=== PATIENT | female | born 1960 | race African-American/Black ===

== ENCOUNTER → 2016-09-19 | Outpatient (CLI) | payer BC | LOC: WI 08:12 | PROVIDERS: ATTEND Internal Medicine | DX: Z12.31 Encounter for screening mammogram for malignant neoplasm of breast (principal) | CPT/HCPCS: 77067; G0202 ==

== ENCOUNTER → 2018-08-24 | Outpatient (CLI) | payer BC ==
--- NOTE | 2018-08-24 10:36 | WOMENS IMAGING REPORT ---
EXAM DESCRIPTION: BILAT SCREENING MAMMO W/CAD COMPLETED DATE/TIME: 08/24/2018 8:19 am REASON FOR STUDY: Z12.31 ROUTINE BILATERAL SCREENING Z12.31 ENCNTR SCREEN MAMMOGRAM FOR MALIGNANT N EOPLASM OF MAYANK COMPARISON: Multiple since 2008 TECHNIQUE: Standard craniocaudal and mediolateral oblique views of each breast recorded using [employer] acquisition. LIMITATIONS: None. FINDINGS: No masses, calcifications or architectural distortion. No areas of suspicion. Read with the assistance of CAD. .[facility] - R2 [employer] Version 1.3 .[facility] - R2 [employer] Version 1.3 .[facility] - R2 Cenova Version 2.4 .[facility] [place] R2 Cen[employer] Version 2.4 .[facility] - R2 [employer] Version 9.2 IMPRESSION: NORMAL MAMMOGRAM. BIRADS 1. BREAST DENSITY: c. The breasts are heterogeneously dense, which may obscure small masses. BIRAD: 1 NEGATIVE RECOMMENDATION: ROUTINE SCREENING COMMENT: The patient has been notified of the results by letter per SA requirements. Additional no tification policies are in place for contacting patient with suspicious or incomplete findings. Quality ID #[id number]: The [employer] recommends an annual screening mammogram for women aged 40 years or over. This facility utilizes a reminder system to ensure that all patients receive reminder letters, and/or direct phone calls for appointments. This includes reminders for routine scr eening mammograms, diagnostic mammograms, or other Breast Imaging Interventions when appropriate. Th is patient will be placed in the appropriate reminder system. The [employer] (ACR) has developed recommendations for screening MRI of the breast s in certain patient populations, to be used in conjunction with mammography. Breast MRI surveillanc e may be appropriate for women with more than 20% lifetime risk of developing breast cancer as deter mined by genetic testing, significant family history of the disease, or history of mantle radiation f or Hodgkins Disease. ACR Practice Guidelines 2008. TECHNICAL DOCUMENTATION: FINDING NUMBER: (1) ASSESSMENT: (1) JOB ID: [id number] [employer]- All Rights Reserved Reading location - IP/workstation name: [email or web address]
== END ==
LOC: WI 07:55
PROVIDERS: ATTEND Internal Medicine
DX: Z12.31 Encounter for screening mammogram for malignant neoplasm of breast (principal)
CPT/HCPCS: 77067

== ENCOUNTER → 2018-11-19 | Outpatient (CLI) | payer BC ==
--- NOTE | 2018-11-19 15:09 | RADIOLOGY REPORT (SQ) ---
EXAM DESCRIPTION: HIP LEFT AP/LATERAL COMPLETED DATE/TIME: 11/19/2018 12:28 pm REASON FOR STUDY: ANKYLOSIS, LEFT HIP M24.652 ANKYLOSIS, LEFT HIP M24.662 ANKYLOSIS, LEFT KNEE COMPARISON: None. NUMBER OF VIEWS: Two views. TECHNIQUE: AP pelvis and additional frog-leg view of the left hip. LIMITATIONS: None. FINDINGS: There is joint space narrowing, osteophyte formation near bone on bone contact in the left hip. Minor osteoarthritic changes in the right hip. SI joints are normal. IMPRESSION: Advanced osteoarthritis left hip. TECHNICAL DOCUMENTATION: JOB ID: [id number] [employer]- All Rights Reserved Reading location - IP/workstation name: [email or web address]
--- NOTE | 2018-11-19 15:54 | RADIOLOGY REPORT (SQ) ---
EXAM DESCRIPTION: KNEE LEFT 4 VIEWS COMPLETED DATE/TIME: 11/19/2018 12:28 pm REASON FOR STUDY: ANKYLOSIS, LEFT KNEE M24.652 ANKYLOSIS, LEFT HIP M24.662 ANKYLOSIS, LEFT KNEE COMPARISON: None. NUMBER OF VIEWS: Four views. TECHNIQUE: AP, lateral, and both oblique radiographic images acquired of the left knee. LIMITATIONS: None. FINDINGS: There is joint space narrowing and osteophyte formation in all 3 compartments, more advanc ed in the medial compartment. Small joint effusion. No chondrocalcinosis. IMPRESSION: Osteoarthritis. TECHNICAL DOCUMENTATION: JOB ID: [id number] [employer]- All Rights Reserved Reading location - IP/workstation name: [email or web address]
== END ==
LOC: OD 12:13
PROVIDERS: ATTEND Internal Medicine
DX: M24.652 Ankylosis, left hip (principal); M24.662 Ankylosis, left knee; M17.0 Bilateral primary osteoarthritis of knee; M16.12 Unilateral primary osteoarthritis, left hip

== ENCOUNTER → 2020-01-24 | Outpatient (CLI) | payer OTHER ==
--- NOTE | 2020-01-25 15:01 | WOMENS IMAGING REPORT ---
EXAM DESCRIPTION: BILAT SCREENING MAMMO W/CAD IMAGES COMPLETED DATE/TIME: 01/24/2020 10:59 am REASON FOR STUDY: Z12.31 ENCNTR SCREEN MAMMOGRAM FOR MALIGNANT NEOPLASM OF BREAST Z12.31 ENCNTR SCR EEN MAMMOGRAM FOR MALIGNANT NEOPLASM OF MAYANK COMPARISON: Priors dating back to 2012. EXAM PARAMETERS: Standard craniocaudal and mediolateral oblique views of each breast recorded using digital acquisition. Read with the assistance of CAD. .[facility] - [employer] Version 9.2 LIMITATIONS: None. FINDINGS: No suspicious masses, suspicious calcifications or architectural distortion. No areas of c oncern. IMPRESSION: NEGATIVE MAMMOGRAM. BIRADS 1 BREAST DENSITY: b. There are scattered areas of fibroglandular density. BIRAD: ASSESSMENT: 1 NEGATIVE RECOMMENDATION: ROUTINE SCREENING COMMENT: The patient has been notified of the results by letter per MQSA requirements. Additional no tification policies are in place for contacting patient with suspicious or incomplete findings. Quality ID #[id number]: The [employer] recommends an annual screening mammogram for women aged 40 years or over. This facility utilizes a reminder system to ensure that all patients receive reminder letters, and/or direct phone calls for appointments. This includes reminders for routine scr eening mammograms, diagnostic mammograms, or other Breast Imaging Interventions when appropriate. Th is patient will be placed in the appropriate reminder system. TECHNICAL DOCUMENTATION: FINDING NUMBER: (1) ASSESSMENT: (1) JOB ID: [id number] [employer]- All Rights Reserved Reading location - IP/workstation name: [email or web address]
== END ==
LOC: WI 08:26
PROVIDERS: ATTEND Internal Medicine
DX: Z12.31 Encounter for screening mammogram for malignant neoplasm of breast (principal)
CPT/HCPCS: 77067

== ENCOUNTER → 2020-04-27 | Outpatient (CLI) | payer OTHER ==
--- NOTE | 2020-04-27 18:27 | XCELERA REPORT ---
[address] [address] Transthoracic Echocardiogram Report Name: MILLICENT DEGROOT Age: 59 yrs Gender: Female : 1960 Patient Status: Outpatient Patient Location: RAD Study Date: 04/27/2020 10:33 AM History: Chest pain Height: 65 in Weight: 170 lb BSA: 1.8 m2 Procedure: A complete two-dimensional transthoracic echocardiogram was performed (2D, M-mode, spectral and color flow Doppler). The study was technically difficult with many images being suboptimal in quality. Reason For Study: CP Previous Evaluation: A previous study was performed on 02/23/2012 LVEF was normal. History: Chest pain. Ordering Physician: FELICIA PAZ Performed By: Aleshia Rodriguez Interpretation Summary The left ventricle is hyperdynamic. The Ejection Fraction estimate is >70% The right ventricle is normal in size and function. There is a trace amount of mitral regurgitation There is no aortic valve stenosis There is a trace amount of tricuspid regurgitation There is no pericardial effusion. MMode/2D Measurements & Calculations RVDd: 1.9 cm LVIDd: 3.0 cm FS: 37.2 % Ao root diam: 2.3 cm IVSd: 0.90 cm LVIDs: 1.9 cm EDV(Teich): Ao root area: LVPWd: 0.98 cm 34.5 ml 4.2 cm2 ESV(Teich): 10.7 ml EF(Teich): 68.9 % EDV(MOD-sp4): SV(MOD-sp4): 44.0 ml 30.4 ml ESV(MOD-sp4): 13.7 ml EF(MOD-sp4): 69.0 % Doppler Measurements & Calculations MV E max ghassan: MV dec slope: Ao V2 max: LV V1 max P.7 cm/sec 128.2 cm/sec 4.7 mmHg MV A max ghassan: 806.9 cm/sec2 Ao max PG: LV V1 max: 89.2 cm/sec MV dec time: 0.14 sec6.6 mmHg 108.4 cm/sec MV E/A: 1.2 PA V2 max: TR max ghassan: 99.7 cm/sec 211.9 cm/sec PA max P.0 mmHg TR max P.0 mmHg Left Ventricle The left ventricular cavity is small. There is mild to moderate concentric left ventricular hypertrophy. The Ejection Fraction estimate is >70%. The left ventricle is hyperdynamic. Doppler measurements suggest normal left ventricular diastolic function. Regional wall motion abnormalities cannot be excluded due to limited visualization. Right Ventricle The right ventricle is normal in size and function. Atria The right atrium is normal. The left atrial size is normal. The interatrial septum is intact with no evidence for an atrial septal defect. There is no Doppler evidence for an interatrial shunt. Mitral Valve The mitral valve is grossly normal. There is no evidence of mitral valve prolapse. There is no mitral valve stenosis. There is a trace amount of mitral regurgitation. Aortic Valve The aortic valve is normal in structure and function. The aortic valve is trileaflet. The aortic valve opens well. There is no aortic valve stenosis. No aortic regurgitation is present. Tricuspid Valve The tricuspid valve is normal in structure and function. There is no tricuspid stenosis. There is a trace amount of tricuspid regurgitation. Best estimated RVSP is approximately 20-25 mm Hg mm/Hg. Pulmonic Valve The pulmonic valve is not well visualized. There is no pulmonic valvular stenosis. Great Vessels The aortic root is normal size. The inferior vena cava appeared normal and decreased > 50% with respiration (RAP 5-10 mmHg). Effusions There is no pericardial effusion. : FELICIA PAZ Anil
--- NOTE | 2020-04-28 08:29 | DRAGON STRESS TEST REPORT ---
Exercise nuclear stress test Date: 04/27/2020 Referring physician: Donnell Sandhu MD Performing physician: Javier Paz MD Indication: Chest pain Clinical history 59-year-old lady with medical history significant for diabetes mellitus, dyslipidemia as well as rheumatoid arthritis presented for further evaluation of left-sided chest pain. We decided to proceed with exercise nuclear stress test. Procedure The patient presented to the stress lab. Initially rest images were obtained according to standard protocol after the injection of 11.72 millicurie technetium 99m sestamibi. Subsequently the patient underwent exercise nuclear stress test according to David protocol. The patient exercised on the treadmill according to David protocol for a total of 6 minutes and 5 seconds achieving a maximum heart rate of 179 bpm which was 109 % of maximum predicted of 163 bpm. The maximum workload was 7.2 METS. The presenting EKG showed sinus rhythm at 90 bpm. The initial blood pressure was 121/76 mmHg. upon exercise the heart rate benito to a maximum of 179 beats per minute and the blood pressure benito to a maximum of 142/84 mmHg. The patient had rapid increment in heart rate which suggests possible underlying physical deconditioning. The blood pressure increased appropriately with exercise. At peak exercise the patient was injected with 33.7 millicuries of technetium 99m sestamibi. The patient continued to run on the treadmill for another 60 seconds. The exercise EKG was negative for myocardial ischemia. The recovery EKG did not reveal any evidence of myocardial ischemia. The patient did not tolerate the exercise well. The test was stopped on account of fatigue as well as dyspnea. Rapid increase in heart rate suggestive of underlying physical deconditioning. The patient's EKG and vital signs were monitored throughout the procedure. After a period of rest, stress images were obtained according to standard protocol. Raw as well as processed rest and stress images were reviewed. There was mild gut uptake which did not interfere with the study. The rest and stress images show uniform uptake of radioactive isotope without any fixed or reversible defects to suggest myocardial ischemia or myocardial infarction. There is normal contractility post-stress. The calculated ejection fraction is 67 %. The TID ratio is 0.95. Conclusion The exercise EKG is negative for myocardial ischemia. Poor effort tolerance. The gated left ventricular ejection fraction is estimated at 67% There is no scintigraphic evidence for myocardial ischemia or myocardial infarction. The patient will be given an appointment to discuss these test results MTDD
== END ==
LOC: RAD 07:32
PROVIDERS: ATTEND Internal Medicine
DX: R07.9 Chest pain, unspecified (principal); R00.2 Palpitations; R42 Dizziness and giddiness; E11.9 Type 2 diabetes mellitus without complications; E78.5 Hyperlipidemia, unspecified; M06.9 Rheumatoid arthritis, unspecified
CPT/HCPCS: 93306; 93017; 78452; A9500; Q9969